=== PATIENT | male | born 1955 | race Hispanic/Latino ===

== ENCOUNTER 2018-09-15 09:51 | Outpatient (CLI) | payer MEDICARE ==
--- NOTE | 2018-09-15 11:19 | MRI ---
Exam: MRI CERVICAL SPINE WITH CONTRAST: HISTORY: Cervical spondylosis with myelopathy.. COMPARISON: No prior MRIs on the PACS system at [facility]. FINDINGS: Appropriate T1 marrow signal intensity of the cervical vertebra. Vertebral body height is maintained. No fracture. No significant STIR hyperintensity to suggest vertebral body edema or ligamentous injury. C2-C3: No significant central canal stenosis or neural foraminal narrowing. C3-C4: Minimal central disc bulge effacing the ventral subarachnoid space and minimally deforming the cervical cord. Minimal central canal stenosis. Left and right uncovertebral hypertrophy along with right facet hypertrophy result in mild bilateral neural foraminal narrowing. C4-C5: Central disc bulge abuts the thecal sac. There is deformity of the cervical cord, without T2 h yperintensity in the cord. Mild central canal stenosis. Right neural foramen is patent. Minimal left foraminal narrowing due to uncovertebral hypertrophy.. C5-C6: Central/right paracentral disc bulge abuts the thecal sac. Ventral subarachnoid space is effac ed. Mild deformity of the cord, without signal abnormality. Mild central canal stenosis. Minimal right neural foraminal narrowing. Left neural foramen is patent. C6-C7: Central disc bulge abuts the thecal sac. No significant central canal stenosis. Neural foramin a are patent bilaterally. C7-T1: No significant central canal stenosis. Neural foramina are patent. IMPRESSION: Degenerative changes of the cervical spine as detailed above. No high-grade central canal stenosis or high-grade neural foraminal narrowing. Transcribed Date/Time: 09/15/2018 11:40 AM
--- NOTE | 2018-09-15 12:16 | MRI ---
MRI LUMBAR SPINE: 09/15/2018 HISTORY: Low back pain with right lower extremity radiculopathy/numbness. COMPARISON: None. TECHNIQUE: Multiplanar, multisequence MR imaging of the lumbar spine obtained without contrast. FINDINGS: Sagittal STIR imaging demonstrates no focal area of osseous marrow edema. Lumbar vertebral body heig ht and alignment appear normal. The conus medullaris terminates at the L1 level. T12-L1: Mild bilateral facet hypertrophy. Intervertebral disk height and signal intensity are withi n normal limits with no significant central canal or neural foraminal stenosis. L1-L2: Mild bilateral facet hypertrophy with no central canal or neural foraminal stenosis. Interve rtebral disk height and signal intensity within normal limits. L2-L3: Mild bilateral facet hypertrophy. Intervertebral disk height and signal intensity within nor mal limits with no significant central canal or neural foraminal stenosis. L3-L4: There is disk desiccation and mild disk bulge. No associated central canal stenosis. Bilate ral facet and uncovertebral osteophyte formation. No significant neural foraminal stenosis on the le ft. Mild neural foraminal stenosis on the right. L4-L5: Disk desiccation and mild disk bulge with no significant central canal stenosis. Bilateral f acet hypertrophy and hypertrophy of the ligamentum flavum, with no significant neural foraminal steno sis. L5-S1: Mild bilateral facet hypertrophy. Minimal disk bulge. No central canal or neural foraminal stenosis. Probable partially obscured small cyst of the lower pole right kidney noted, measuring approximately 1 cm. IMPRESSION: Lumbar spine degenerative change, as described above. POS: [facility]
== END 2018-09-15 09:52 | disposition home or self-care (01) ==
LOC: BICMRI 09:51
PROVIDERS: ATTEND Neurological Surgery
DX: M47.16 Other spondylosis with myelopathy, lumbar region (principal); M47.12 Other spondylosis with myelopathy, cervical region; M54.5 Low back pain
CPT/HCPCS: 72141; 72148